=== PATIENT | male | born 1970 | race Caucasian/White ===

== ENCOUNTER 2017-06-16 15:16 | Outpatient (CLI) | payer OTHER | END 2017-06-16 15:17 | disposition home or self-care (01) | LOC: SC 15:16 | PROVIDERS: ATTEND Nurse Practitioner Family | DX: G47.33 Obstructive sleep apnea (adult) (pediatric) (principal) | CPT/HCPCS: 99212; 99214 ==

== ENCOUNTER 2018-10-05 13:00 | Emergency (ER) | payer OTHER ==
[2018-10-05] MEDS ORDERED: SODIUM CHLORIDE 0.9% 1,000 ML IV ONE (13:13)
[2018-10-05] MEDS ORDERED: HYDROmorphone 1 MG/ML CARPUJECT IVP STA (13:13)
--- NOTE | 2018-10-05 13:16 | ED Physician Documentation ---
History of Present Illness - Stated complaint Stated Complaint: GLF - History obtained from History obtained from: Patient, EMS - History of Present Illness Timing: Today Pain level max: 10 Pain level now: 10 Improved by: immoblization Worsened by: movement - Additonal information Additional information: 48-year-old male presents to the emergency department after a slip and fall on the ice today. Has a deformity to the right ankle as well as pain. Brought in by EMS. No head injury. No neck or back pain. No other injury. Better with rest and worse with movement. He is not on blood thinners Review of Systems Ten Systems: 10 systems reviewed and negative Constitutional: denies: Fever Respiratory: denies: Cough Skin: denies: Rash Musculoskeletal: denies: Neck pain, Back pain Neurologic: denies: Headache PD PAST MEDICAL HISTORY - Past Medical History Past Medical History: Yes Cardiovascular: Hypertension, High cholesterol Respiratory: Sleep apnea, CPAP use Endocrine/Autoimmune: Type 2 diabetes - Present Medications Home Medications: Ambulatory Orders Medication Instructions Recorded Confirmed Metformin HCl 500 mg PO BID 12/12/15 12/12/15 Oxycodone HCl/Acetaminophen 1 - 2 each PO Q6H PRN #20 tablet 10/05/18 [Percocet 5-325 mg Tablet] - Allergies Allergies/Adverse Reactions: Allergies Allergy/AdvReac Type Severity Reaction Status Date / Time Penicillins Allergy Unknown Verified 10/05/18 13:14 - Social History Smoking Status: Never smoker PD ED PE NORMAL - Vitals Vital signs reviewed: Yes - General General: Alert and oriented X 3, No acute distress - HEENT HEENT: Atraumatic, PERRL, Moist mucous membranes - Neck Neck: Supple, no meningeal sign, No bony TTP - Cardiac Cardiac: RRR, Strong equal pulses - Respiratory Respiratory: No respiratory distress, Clear bilaterally - Abdomen Abdomen: Soft, Non tender, Non distended - Back Back: No spinal TTP - Derm Derm: Warm and dry - Extremities Extremities: Other (R ankle - gross deformity. NVI. ) - Neuro Neuro: Alert and oriented X 3 Results - Vitals Vitals: Vital Signs - 24 hr 10/05/18 10/05/18 10/05/18 13:10 13:53 14:00 Temperature 36.5 C Heart Rate 64 66 72 Respiratory 18 16 20 Rate Blood Pressure 144/89 H 154/86 H O2 Saturation 98 97 10/05/18 10/05/18 10/05/18 14:04 14:10 14:15 Temperature Heart Rate 65 71 66 Respiratory 12 16 14 Rate Blood Pressure 157/94 H 171/98 H 155/101 H O2 Saturation 99 100 99 10/05/18 10/05/18 10/05/18 14:20 14:29 14:30 Temperature Heart Rate 75 74 68 Respiratory 17 16 16 Rate Blood Pressure 161/86 H 167/88 H 158/90 H O2 Saturation 99 99 98 10/05/18 10/05/18 15:13 15:15 Temperature 36.7 C Heart Rate 80 Respiratory 16 Rate Blood Pressure 173/97 H O2 Saturation 98 Oxygen O2 Source Room air - Labs Labs: Laboratory Tests 10/05/18 10/05/18 13:20 13:20 WBC 7.1 RBC 4.91 Hgb 15.3 Hct 43.6 MCV 88.8 MCH 31.1 H MCHC 35.0 RDW 13.7 Plt Count 240 MPV 8.5 Neut # (Auto) 4.1 Lymph # (Auto) 2.3 [place] # (Auto) 0.5 Eos # (Auto) 0.1 Baso # (Auto) 0.2 H Absolute Nucleated RBC 0.00 Nucleated RBC % 0.1 Sodium 135 Potassium 3.8 Chloride 100 L Carbon Dioxide 26 Anion Gap 9.0 BUN 17 Creatinine 1.0 Estimated GFR (MDRD) 80 L Glucose 204 H Calcium 9.4 - Rads (name of study) R ankle xray Radiology: Prelim report reviewed, EMP read contemporaneously, See rad report (Trimalleolar fracture, posterior dislocation. ) R ankle post reduction Radiology: Prelim report reviewed, EMP read contemporaneously, See rad report (Improved alignment post reduction. 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 This was reduced. Tolerated well. Placed in a bulky splint. We will have him follow-up with orthopedics for further care. He would like to pursue care at [facility] where his is employed. Images of the x-rays were given to him to take with him. Pain well controlled. Dr. Pereira, orthopedics came and evaluated the patient as well in the emergency department. Patient counseled regarding signs and symptoms for which I believe and urgent re-evaluation would be necessary. Patient with good understanding of and agreement to plan and is comfortable going home at this time This document was made in part using voice recognition software. While efforts are made to proofread this document, sound alike and grammatical errors may occur. Departure - Departure Disposition: 01 Home, Self Care Clinical Impression: Trimalleolar fracture of right ankle Qualifiers: Encounter type: initial encounter Fracture type: closed Qualified Code(s): S82.851A - Displaced trimalleolar fracture of right lower leg, initial encounter for closed fracture Dislocation of right ankle joint Qualifiers: Encounter type: initial encounter Qualified Code(s): S93.04XA - Dislocation of right ankle joint, initial encounter Condition: Good Instructions: ED Dislocated Ankle, ED Fx Lower Ext Follow-Up: Provider,Other [Primary Care Provider] - Within 1 week Prescriptions: Oxycodone HCl/Acetaminophen [Percocet 5-325 mg Tablet] 1 - 2 each PO Q6H PRN #20 tablet PRN Reason: pain Comments: Use the medications as needed for pain. Elevate the leg whenever possible. It is important you follow-up closely with orthopedics as this will likely require surgery on your ankle. Return if you worsen. Do not drink alcohol or drive while on narcotic pain medicine. Note that many narcotic pain relievers also contain tylenol/acetaminophen. Ple ase ensure that your total dose of acetaminophen from all sources does not exceed 3 grams (3000mg) per day. You may constipated on this medication, take a stool softener such as "Colace" twice a day while you are on it. Also recommend a [id number] laxative such as senna or MiraLAX any day that you do not have a bowel movement. If you received narcotic pain medication in the emergency department, do not drive or operate machinery for the next 24 hours. Discharge Date/Time: 10/05/18 15:32
[2018-10-05 13:26] LABS: BASOPHILS # (AUTO) 0.2 10^3/uL (0.0-0.1); BASOPHILS % (AUTO) 2.2 %; EOSINOPHILS # (AUTO) 0.1 10^3/uL (0.0-0.7); EOSINOPHILS % (AUTO) 1.4 %; HGB - HEMOGLOBIN 15.3 g/dL (14.0-18.0); LYMPHOCYTES # (AUTO) 2.3 10^3/uL (1.5-3.5); LYMPHOCYTES % (AUTO) 32.1 %; MEAN CORPUSCULAR HEMOGLOBIN 31.1 pg (27.0-31.0); MEAN CORPUSCULAR VOLUME 88.8 fL (80.0-94.0); MEAN PLATELET VOLUME 8.5 fL (7.4-11.4); MONOCYTES # (AUTO) 0.5 10^3/uL (0.0-1.0); MONOCYTES % (AUTO) 6.6 %; NEUTROPHILS # (AUTO) 4.1 10^3/uL (1.5-6.6); NEUTROPHILS % (AUTO) 57.7 %; PLT - PLATELET COUNT 240 10^3/uL (130-450); RED BLOOD COUNT 4.91 10^6/uL (4.70-6.10); RED CELL DISTRIBUTION WIDTH 13.7 % (12.0-15.0); WHITE BLOOD COUNT 7.1 x10^3/uL (4.8-10.8)
[2018-10-05 13:35] LABS: CALCIUM 9.4 mg/dL (8.5-10.3)
[2018-10-05] MEDS ORDERED: PROPOFOL 200 MG/20 ML VIAL IVP STA (13:48)
--- NOTE | 2018-10-05 13:58 | XRAY Report ---
Reason: fall, R ankle deformity. Procedure Date: 10/05/2018 Accession Number: [id number] / [id number] Procedure: XR - Ankle 3 View RT CPT Code: FULL RESULT: EXAM: RIGHT ANKLE RADIOGRAPHY EXAM DATE: 10/05/2018 01:39 PM. CLINICAL HISTORY: Fall, R ankle deformity. COMPARISON: None. TECHNIQUE: 3 views. FINDINGS: Bones: Oblique fracture of the lateral malleolus, small transverse fracture of medial malleolar tip, and prominent longitudinal fracture of posterior malleolus with apex anterior and medial angulation. Joints: Complete posterior dislocation of the talus at the tibiotalar joint with impaction of the talus on the fractured posterior malleolus, displaced from underlying bone. Associated lateral subluxation resulting in marked widening of the apparent mortise medially. Soft Tissues: Soft tissue swelling. IMPRESSION: Trimalleolar fracture, posterior dislocation. RADIA
[2018-10-05] MEDS ORDERED: oxyCODONE 5 MG TABLET PO STA (15:06)
--- NOTE | 2018-10-05 15:08 | XRAY Report ---
Reason: post reduction Procedure Date: 10/05/2018 Accession Number: [id number] / [id number] Procedure: XR - Ankle 3 View RT CPT Code: FULL RESULT: EXAM: RIGHT ANKLE RADIOGRAPHY EXAM DATE: 10/05/2018 02:41 PM. CLINICAL HISTORY: Post reduction. COMPARISON: ANKLE 3 VIEW RT 10/05/2018 1:19 PM. TECHNIQUE: 3 views. FINDINGS: Bones: Trimalleolar fractures, mildly displaced, significantly improved post reduction and casting. Joints: Mild persistent widening of the medial ankle mortise and the syndesmosis. IMPRESSION: Improved alignment post reduction. RADIA
[2018-10-05 15:14] VITALS: BP 173/97
== END 2018-10-05 15:32 | disposition home or self-care (01) ==
LOC: EDBD → EDUNIT# → ED 13:00
DX: S82.851A Displaced trimalleolar fracture of right lower leg, initial encounter for closed fracture (principal); S93.04XA Dislocation of right ankle joint, initial encounter; W00.0XXA Fall on same level due to ice and snow, initial encounter; Y93.01 Activity, walking, marching and hiking; I10 Essential (primary) hypertension; E11.9 Type 2 diabetes mellitus without complications; Z79.84 Long term (current) use of oral hypoglycemic drugs
CPT/HCPCS: 27818; 36415; 73610; 80048; 85025; 94770; 96361; 96374; 99152; 99153; 99283; 99284; A9270; J1170

== ENCOUNTER 2019-12-02 15:23 | Outpatient (CLI) | payer BC | END 2019-12-02 15:24 | disposition home or self-care (01) | LOC: COV 15:23 | PROVIDERS: ATTEND Family Medicine | DX: R05 Cough (principal) | CPT/HCPCS: 81599 ==

== ENCOUNTER 2020-02-29 08:00 | Outpatient (CLI) | payer BC | END 2020-02-29 23:59 | disposition home or self-care (01) | LOC: LAB 08:00 | PROVIDERS: ATTEND Registered Nurse | DX: R05 Cough (principal); Z20.828 Contact with and (suspected) exposure to other viral communicable diseases | CPT/HCPCS: 81599 ==

== ENCOUNTER 2020-08-14 08:22 | Outpatient (CLI) | payer BC ==
[2020-08-14 08:43] LABS: BASOPHILS # (AUTO) 0.1 10^3/uL (0.0-0.1); BASOPHILS % (AUTO) 0.7 %; EOSINOPHILS # (AUTO) 0.2 10^3/uL (0.0-0.7); EOSINOPHILS % (AUTO) 2.3 %; HGB - HEMOGLOBIN 14.8 g/dL (14.0-18.0); LYMPHOCYTES # (AUTO) 3.1 10^3/uL (1.5-3.5); LYMPHOCYTES % (AUTO) 36.9 %; MEAN CORPUSCULAR HEMOGLOBIN 30.8 pg (27.0-31.0); MEAN CORPUSCULAR HGB CONC 34.4 g/dL (32.0-36.0); MEAN CORPUSCULAR VOLUME 89.6 fL (80.0-94.0); MEAN PLATELET VOLUME 10.7 fL (7.4-11.4); MONOCYTES # (AUTO) 0.6 10^3/uL (0.0-1.0); MONOCYTES % (AUTO) 7.3 %; NEUTROPHILS # (AUTO) 4.3 10^3/uL (1.5-6.6); NEUTROPHILS % (AUTO) 52.6 %; PLT - PLATELET COUNT 239 10^3/uL (130-450); RED CELL DISTRIBUTION WIDTH 12.2 % (12.0-15.0); WHITE BLOOD COUNT 8.3 x10^3/uL (4.8-10.8)
[2020-08-14 08:59] LABS: ALBUMIN/GLOBULIN RATIO 1.7 (1.0-2.2); ALKALINE PHOSPHATASE 68 IU/L (42-121); ALT ALANINE AMINOTRANSFERASE 23 IU/L (10-60); AST ASPARTATE AMINOTRANSFERASE 23 IU/L (10-42); BUN - BLOOD UREA NITROGEN 20 mg/dL (6-20); CALCIUM 9.3 mg/dL (8.5-10.3); CARBON DIOXIDE - CO2 24 mmol/L (21-32); CHLORIDE 104 mmol/L (101-111); CHOL/HDL RATIO 4.4 (<5.0); CHOLESTEROL 155 mg/dL; GLUCOSE 181 mg/dL (70-100); HDL CHOLESTEROL 35 mg/dL; LDL CHOLESTEROL,CALCULATED 90 mg/dL; LDL/HDL RATIO 2.6 (<3.6); SODIUM 137 mmol/L (135-145); VLDL CHOLESTEROL 30 mg/dL
== END 2020-08-14 08:23 | disposition home or self-care (01) ==
LOC: LAB 08:22
PROVIDERS: ATTEND Registered Nurse
DX: I10 Essential (primary) hypertension (principal); E78.5 Hyperlipidemia, unspecified; E11.9 Type 2 diabetes mellitus without complications
CPT/HCPCS: 36415; 80053; 80061; 83721; 84443; 85025

== ENCOUNTER 2020-11-19 07:47 | Outpatient (CLI) | payer BC ==
[2020-11-19 08:19] LABS: CREATININE,URINE 204.8 mg/dL; MICROALBUM/CREATININE RATIO,UR 3.9 ug/mg (<30.0); MICROALBUMIN,URINE 0.8 mg/dL (0-300.0)
[2020-11-19 11:54] LABS: ESTIMATED AVERAGE GLUCOSE 174 mg/dL (70-100); HEMOGLOBIN A1c% 7.7 % (4.27-6.07)
== END 2020-11-19 07:48 | disposition home or self-care (01) ==
LOC: LAB 07:47
PROVIDERS: ATTEND Physician Assistant
DX: E11.9 Type 2 diabetes mellitus without complications (principal)
CPT/HCPCS: 36415; 82043; 82570; 83036

== ENCOUNTER 2021-03-14 16:57 | Outpatient (CLI) | payer BC ==
[2021-03-14 17:24] LABS: CALCIUM 9.5 mg/dL (8.5-10.3); CREATININE 1.1 mg/dL (0.6-1.2); POTASSIUM 4.2 mmol/L (3.5-5.0)
[2021-03-14 17:26] LABS: CREATININE,URINE 52.2 mg/dL; MICROALBUMIN,URINE 1.2 mg/dL (0-300.0)
[2021-03-14 20:12] LABS: ESTIMATED AVERAGE GLUCOSE 180 mg/dL (70-100); HEMOGLOBIN A1c% 7.9 % (4.27-6.07)
== END 2021-03-14 16:58 | disposition home or self-care (01) ==
LOC: LAB 16:57
PROVIDERS: ATTEND Physician Assistant
DX: E11.9 Type 2 diabetes mellitus without complications (principal)
CPT/HCPCS: 36415; 80048; 82043; 82570; 83036

== ENCOUNTER 2021-09-09 09:05 | Outpatient (CLI) | payer OTHER ==
[2021-09-09 09:45] LABS: BASOPHILS # (AUTO) 0.1 10^3/uL (0.0-0.1); BASOPHILS % (AUTO) 0.8 %; EOSINOPHILS # (AUTO) 0.2 10^3/uL (0.0-0.7); EOSINOPHILS % (AUTO) 2.4 %; LYMPHOCYTES # (AUTO) 2.3 10^3/uL (1.5-3.5); LYMPHOCYTES % (AUTO) 27.8 %; MEAN CORPUSCULAR HEMOGLOBIN 31.4 pg (27.0-31.0); MEAN CORPUSCULAR HGB CONC 34.9 g/dL (32.0-36.0); MEAN CORPUSCULAR VOLUME 90.1 fL (80.0-94.0); MEAN PLATELET VOLUME 10.2 fL (7.4-11.4); MONOCYTES # (AUTO) 0.7 10^3/uL (0.0-1.0); MONOCYTES % (AUTO) 8.6 %; PLT - PLATELET COUNT 230 10^3/uL (130-450); RED BLOOD COUNT 4.77 10^6/uL (4.70-6.10); RED CELL DISTRIBUTION WIDTH 12.3 % (12.0-15.0); WHITE BLOOD COUNT 8.3 x10^3/uL (4.8-10.8)
[2021-09-09 10:01] LABS: ALBUMIN 4.7 g/dL (3.2-5.5); ALBUMIN/GLOBULIN RATIO 1.7 (1.0-2.2); BILIRUBIN,TOTAL 0.9 mg/dL (0.2-1.0); CALCIUM 9.3 mg/dL (8.5-10.3); CREATININE 0.9 mg/dL (0.6-1.2); POTASSIUM 4.3 mmol/L (3.5-5.0); TOTAL PROTEIN 7.4 g/dL (6.7-8.2)
[2021-09-09 10:12] LABS: ESTIMATED AVERAGE GLUCOSE 146 mg/dL (70-100); HEMOGLOBIN A1c% 6.7 % (4.27-6.07)
== END 2021-09-09 09:06 | disposition home or self-care (01) ==
LOC: LAB 09:05
PROVIDERS: ATTEND Internal Medicine
DX: E11.9 Type 2 diabetes mellitus without complications (principal)
CPT/HCPCS: 36415; 80053; 83036; 85025

== ENCOUNTER 2022-08-28 21:09 | Emergency (ER) | payer OTHER ==
[2022-08-28] MEDS ORDERED: ONDANSETRON 4 MG/2 ML VIAL IVP STA (21:25)
[2022-08-28] MEDS ORDERED: SODIUM CHLORIDE 0.9% 1,000 ML IV STA (21:25)
[2022-08-28 22:13] LABS: BASOPHILS % (AUTO) 0.5 %; EOSINOPHILS # (AUTO) 0.1 10^3/uL (0.0-0.7); EOSINOPHILS % (AUTO) 1.6 %; HCT - HEMATOCRIT 41.8 % (42.0-52.0); HGB - HEMOGLOBIN 13.9 g/dL (14.0-18.0); LYMPHOCYTES # (AUTO) 2.8 10^3/uL (1.5-3.5); MEAN CORPUSCULAR HEMOGLOBIN 29.4 pg (27.0-31.0); MEAN CORPUSCULAR HGB CONC 33.3 g/dL (32.0-36.0); MEAN CORPUSCULAR VOLUME 88.6 fL (80.0-94.0); MEAN PLATELET VOLUME 10.4 fL (7.4-11.4); MONOCYTES # (AUTO) 0.7 10^3/uL (0.0-1.0); MONOCYTES % (AUTO) 8.1 %; NEUTROPHILS # (AUTO) 4.3 10^3/uL (1.5-6.6); NEUTROPHILS % (AUTO) 54.1 %; PLT - PLATELET COUNT 294 10^3/uL (130-450); RED BLOOD COUNT 4.72 10^6/uL (4.70-6.10); RED CELL DISTRIBUTION WIDTH 12.2 % (12.0-15.0)
[2022-08-28 22:26] LABS: ALBUMIN 4.3 g/dL (3.2-5.5); ALBUMIN/GLOBULIN RATIO 1.2 (1.0-2.2); BILIRUBIN,TOTAL 0.7 mg/dL (0.2-1.0); CALCIUM 9.1 mg/dL (8.5-10.3); CREATININE 1.1 mg/dL (0.6-1.2); POTASSIUM 4.2 mmol/L (3.5-5.0); TOTAL PROTEIN 7.9 g/dL (6.7-8.2)
[2022-08-28] MEDS ORDERED: KETOROLAC 30 MG/ML VIAL IVP STA (23:28)
[2022-08-28] MEDS ORDERED: HYDROmorphone 1 MG/ML CARPUJECT IVP STA (23:28)
--- NOTE | 2022-08-28 23:29 | Ultrasound Report ---
PROCEDURE: Abdomen Limited INDICATIONS: RUQ pain/nausea TECHNIQUE: Real-time focused scanning was performed of the abdomen, with image documentation. COMPARISON: Ultrasound abdomen 06/05/2016 FINDINGS: Liver is enlarged measuring 18.4 cm with steatosis. Less than 1 cm focus of decreased echo genicity is present. Gallbladder demonstrates appearance of possible sludge. Wall is thickened measur ing approximately 5 mm. Common bile duct measures 2.6 mm. Right kidney measures 12.3 cm. Simple right renal cyst is present measuring 2.1 cm. IMPRESSION: Possible sludge within the gallbladder without visualized stone. Wall thickness is present. This may represent a calculus cholecystitis. Recommend correlation patient's symptoms. Hepatomegaly steatosis. Less than 1 cm focus of decreased echogenicity suspicious for simple cyst. Reviewed by: Karine Benz MD on 08/28/2022 11:37 PM PST Approved by: Karine Benz MD on 08/28/2022 11:37 PM PST Station ID: [id number]
[2022-08-29] MEDS ORDERED: iohexoL-300 100 ML VIAL ONE (01:12)
[2022-08-29] MEDS ORDERED: iohexoL-300 100 ML VIAL IVP ONE (02:02)
--- NOTE | 2022-08-29 03:00 | ED Physician Documentation ---
History of Present Illness - Stated complaint Stated Complaint: ABD PX - Chief complaint Chief Complaint: Abd Pain - History obtained from History obtained from: Patient - Additonal information Additional information: The patient comes to the emergency department with chief complaint of right upper quadrant pain that came on suddenly a few hours ago after he ate some ham. The patient states that he has no known gallbladder disease for either himself or his family but that he has had an episode like this once before. He states it was within the past week and it was fairly brief. The patient states he has had some nausea but no vomiting. No fevers or chills. No jaundice. No chronic abdominal conditions. No surgeries on the abdomen. Review of Systems Ten Systems: 10 systems reviewed and negative Constitutional: reports: Reviewed and negative Eyes: reports: Reviewed and negative Ears: reports: Reviewed and negative Nose: reports: Reviewed and negative Throat: reports: Reviewed and negative Cardiac: reports: Reviewed and negative Respiratory: reports: Reviewed and negative GI: reports: Abdominal Pain, Nausea. denies: Vomiting : reports: Reviewed and negative Skin: reports: Reviewed and negative Musculoskeletal: reports: Reviewed and negative Neurologic: reports: Reviewed and negative Psychiatric: reports: Reviewed and negative Endocrine: reports: Reviewed and negative Immunocompromised: reports: Reviewed and negative PD PAST MEDICAL HISTORY - Past Medical History Cardiovascular: Hypertension, High cholesterol Respiratory: Sleep apnea, CPAP use Endocrine/Autoimmune: Type 2 diabetes - Past Surgical History Past Surgical History: No - Present Medications Home Medications: Ambulatory Orders Medication Instructions Recorded Confirmed Metformin HCl 500 mg PO BID 12/12/15 12/12/15 Oxycodone HCl/Acetaminophen 1 - 2 each PO Q6H PRN #20 tablet 10/05/18 [Percocet 5-325 mg Tablet] Ondansetron Odt [Zofran] 4 mg TL Q6H PRN #10 tablet 08/29/22 oxyCODONE/ACET 5/325 [Percocet 5 1 - 2 tab PO Q4-6H PRN #20 tablet 08/29/22 mg/325 mg] - Allergies Allergies/Adverse Reactions: Allergies Allergy/AdvReac Type Severity Reaction Status Date / Time Penicillins Allergy Unknown Verified 08/28/22 21:21 - Social History Does the pt smoke?: No Smoking Status: Never smoker Does the pt drink ETOH?: No PD ED PE NORMAL - Vitals Vital signs reviewed: Yes - General General: Alert and oriented X 3, No acute distress, Well developed/nourished, Other (The patient appears somewhat uncomfortable but otherwise in no apparent distress.) - HEENT HEENT: Atraumatic, PERRL, EOMI, Moist mucous membranes - Neck Neck: Supple, no meningeal sign - Cardiac Cardiac: RRR, No murmur, Strong equal pulses - Respiratory Respiratory: No respiratory distress, Clear bilaterally - Abdomen Abdomen: Soft, Non distended, Other (Moderate tenderness, Lateral right upper quadrant. No rebound or guarding. No other tenderness.) - Derm Derm: Normal color, Warm and dry, No rash - Extremities Extremities: No deformity, No edema - Neuro Neuro: Alert and oriented X 3, desktop operator 2-12 intact, Normal speech - Psych Psych: Normal mood, Normal affect Results - Vitals Vitals: Oxygen O2 Source Room air - Labs Labs: Laboratory Tests 08/28/22 08/28/22 22:09 22:09 WBC 8.0 RBC 4.72 Hgb 13.9 L Hct 41.8 L MCV 88.6 MCH 29.4 MCHC 33.3 RDW 12.2 Plt Count 294 MPV 10.4 Neut # (Auto) 4.3 Lymph # (Auto) 2.8 [place] # (Auto) 0.7 Eos # (Auto) 0.1 Baso # (Auto) 0.0 Absolute Nucleated RBC 0.00 Nucleated RBC % 0.0 Sodium 139 Potassium 4.2 Chloride 102 Carbon Dioxide 27 Anion Gap 10.0 BUN 18 Creatinine 1.1 Estimated GFR (MDRD) 71 L Glucose 281 H Calcium 9.1 Total Bilirubin 0.7 AST 25 ALT 40 Alkaline Phosphatase 98 Total Protein 7.9 Albumin 4.3 Globulin 3.6 Albumin/Globulin Ratio 1.2 Lipase 38 PD Medical Decision Making - ED course Complexity details: reviewed results, re-evaluated patient, considered differential, d/w patient ED course: The patient was treated symptomatically with IV fluids, Dilaudid, and Zofran, and found to be feeling much better. His labs were unremarkable. Ultrasound of the right upper quadrant was of suboptimal quality, secondary to presence of bowel gas. Radiologist could not see stones and felt that there was possibly sludge and Mild wall thickening and question the possibility of acalculus cholecystitis. Given the sudden onset of the patient's symptoms and his otherwise well appearance and normal labs, I felt this was less likely but since there was question about what was going on, I did order a CT scan of the abdomen and pelvis. This was read as showing mild gallbladder wall thickening without stranding or biliary dilatation. There was question of sludge or stones. I discussed the case with Dr. Feldman, our on-call surgeon. He stated that with normal labs, the findings as they were, and improvement in the pt's clinical status, it would be reasonable to let the pt go home, with plan to follow up with surgery to discuss elective cholecystectomy. Alternatively, the pt could board in the ED until this afternoon, when he could be taken to surgery for cholecystectomy at that time. Either way, Dr. Feldman did not feel the pt needed antibiotics at this time. I presented both options to the pt, and after some consideration, he decided he would like to go home. We have discussed the importance of follow up, and the indications for return. Departure - Departure Disposition: 01 Home, Self Care Clinical Impression: Cholecystitis Condition: Stable Instructions: ED Gallstone W Biliary Colic Follow-Up: Tamir Feldman MD [Provider Admit Priv/Credential] - Prescriptions: oxyCODONE/ACET 5/325 [Percocet 5 mg/325 mg] 1 - 2 tab PO Q4-6H PRN #20 tablet PRN Reason: Pain Ondansetron Odt [Zofran] 4 mg TL Q6H PRN #10 tablet PRN Reason: Nausea / Vomiting Comments: You have some very thick bile in your gallbladder and your gallbladder is mildly inflamed. However, your laboratory studies are all normal with regard to any question of liver function or infection, and you do not have a fever or any concerning changes in your blood pressure or heart rate here. Your case has been discussed with the surgeon on-call, who has offered to take her gallbladder out this afternoon, versus letting you go home on some pain and nausea medication and following up with him in clinic. You have opted for the latter for now. You have been provided with prepacks of both the nausea and the pain medication and prescriptions for the same have also been electronically transmitted to the [facility] pharmacy here in [place]. Dr. Feldman, the surgeon, would like you to follow-up in his office in 1 to 2 weeks. Please call the clinic at your earliest convenience to set up this appointment. Be s ure to tell them that you were seen in the emergency department and found to have an inflamed gallbladder, and that your case was discussed with Dr. Feldman and that he wanted you to be seen in 1 to 2 weeks. In the meantime, be sure to eat a very low-fat diet at home, so as not to irritate your gallbladder further. If despite the medications at home, your pain becomes way worse again and/or you cannot keep your medicines down, please return to the emergency department. Discharge Date/Time: 08/29/22 05:31
[2022-08-29] MEDS ORDERED: HYDROmorphone 1 MG/ML CARPUJECT IVP STA ×2 (03:40→04:55)
[2022-08-29] MEDS ORDERED: oxyCODONE/ACET 5/325 Prepack 4 PO STA (04:55)
[2022-08-29] MEDS ORDERED: KETOROLAC 30 MG/ML VIAL IVP STA (05:03)
[2022-08-29] MEDS ORDERED: HYDROmorphone 0.5 MG/0.5 ML SYRINGE IVP STA (05:04)
[2022-08-29 05:31] VITALS: BP 178/96
--- NOTE | 2022-08-29 08:35 | CT Report ---
PROCEDURE: ABDOMEN/PELVIS W INDICATIONS: RUQ pain, suboptimal US CONTRAST: Omni 300 100ml TECHNIQUE: After the administration of IV contrast, 5 mm thick sections acquired from the diaphragms to the symp hysis. 5 mm thick coronal and sagittal reformats were acquired. For radiation dose reduction, the f ollowing was used: automated exposure control, adjustment of mA and/or kV according to patient size. COMPARISON: None. FINDINGS: Image quality: Excellent. ABDOMEN: Lung bases: Lung bases are clear. Heart size is normal. Solid organs: Liver is enlarged and demonstrates diffusely decreased density. No focal hepatic mass. Spleen is within normal limits. Gallbladder demonstrates mild wall thickening without significant pe rinephric fat stranding. There is possible sludge/calculi within the gallbladder lumen. Biliary syst em is non dilated. Pancreas enhances normally. No adrenal nodules. Kidneys demonstrate normal size and enhancement, without hydronephrosis. Peritoneum and bowel: Bowel loops demonstrate normal wall thickness and caliber. Normal appendix. N o free fluid or air. Nodes and vessels: No retroperitoneal or mesenteric adenopathy by size criteria. Aorta and inferior vena cava are normal in size. Miscellaneous: No ventral hernias. PELVIS: Genitourinary: Bladder wall thickness is normal. Miscellaneous: No inguinal hernias or adenopathy. Bones: No suspicious bony lesions. Bilateral L5-S1 pars interarticularis defects. Grade 1 anterolis thesis of L5 on S1. No vertebral body compression fractures. IMPRESSION: 1. Possible gallbladder sludge/calculi. Mild gall bladder wall thickening, which could indicate mild/ early cholecystitis. If ultrasound examination is suboptimal, HIDA scan may be helpful for further as sessment. 2. Normal appendix. 3. 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 4. Hepatic steatosis. 5. Concordant with preliminary interpretation. Reviewed by: Kylee Ruelas MD on 08/29/2022 8:34 AM PST Approved by: Kylee Ruelas MD on 08/29/2022 8:34 AM PST Station ID: [id number]
== END 2022-08-29 05:31 | disposition home or self-care (01) ==
LOC: ED 21:09
DX: K81.9 Cholecystitis, unspecified (principal)
CPT/HCPCS: 36415; 74177; 76705; 80053; 83690; 85025; 96374; 96375; 96376; 99283; 99284; J1170; Q9967